=== PATIENT | male | born 1955 | race Caucasian/White ===

== ENCOUNTER 2020-01-26 09:48 | Emergency (ER) | payer OTHER, SELFPAY ==
[~2020-01-26] VITALS: Ht 162.6 cm; Wt 74.8 kg
[2020-01-26 10:13] VITALS: BP 152/94
--- NOTE | 2020-01-26 11:31 | NUR ---
64 Y/O MALE PRESENTS WITH COVID SYMPTOMS X2 WEEKS. 5/10 BODY ACHES. DRY COUGH. NO RESPIRATORY DISTRESS NOTED AT THIS TIME. AAOX4. AMBULATORY WITH STEADY GAIT. VSS. MED HX: DENIES
[2020-01-26] MEDS ORDERED: HYDROcodone/APAP 5/325 MG 1 TAB TAB PO ONE (11:35)
--- NOTE | 2020-01-26 11:50 | NUR ---
NOVEL SWAB COLLECTED AND TAKEN TO LAB
[2020-01-26 13:24] VITALS: BP 152/94
--- NOTE | 2020-01-29 01:03 | NUR ---
POSITIVE COVID + RESULTS RECEIVED FROM LAB. A COPY OF TEST RESULTS GIVEN TO INFECTION CONTROL.
== END 2020-01-26 13:24 | disposition home or self-care (01) ==
LOC: MED 09:48
DX: R51.9 Headache, unspecified (principal); Z20.828 Contact with and (suspected) exposure to other viral communicable diseases; Z90.49 Acquired absence of other specified parts of digestive tract
CPT/HCPCS: 99283; U0003